=== PATIENT | male | born 1950 | race Caucasian/White ===

== ENCOUNTER 2017-04-21 14:35 | Emergency (ER) | payer OTHER, MEDICARE, BC | END 2017-04-21 14:53 | disposition left against medical advice (07) | LOC: DL.ED 14:35 | DX: Z53.21 Procedure and treatment not carried out due to patient leaving prior to being seen by health care provider (principal) ==

== ENCOUNTER 2017-04-26 08:05 | Emergency (ER) | payer OTHER, MEDICARE, BC ==
[2017-04-26 07:51] VITALS: BP 153/114
--- NOTE | 2017-04-26 08:39 | CR ---
Clinical history: 66-year-old male severe" right rib" pain associated with fall on 21 April 2017. Interpretation: Abnormal. *AP and oblique right rib detail films confirm the presence of acute (historically subacute) fracture s lateral aspect of the right fifth, sixth and seventh ribs. Blunting of the ipsilateral costophrenic sulcus associated mild underlying pleural thickening (hemato ma) lateral right chest wall. No pneumothorax. 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 Normal cardiac silhouette and mediastinum (dense calcifications arch of the aorta). No signs of heart failure. No lung mass, hilar lymphadenopathy or focal lobar pneumonia. CONCLUSION: Several right rib fractures.
--- NOTE | 2017-04-26 09:18 | EDM.PDOC ---
ED HPI GENERAL MEDICAL PROBLEM - General Chief Complaint: Back Pain or Injury Stated Complaint: IN BY [facility] Time Seen by Provider: 04/26/17 08:05 Source of Information: Reports: Patient, EMS, EMS Notes Reviewed, RN, RN Notes Reviewed History Limitations: Reports: No Limitations - History of Present Illness INITIAL COMMENTS - FREE TEXT/NARRATIVE: Pt presents to the ER with c/o right sided pain after a fall on 04/19. [facility] He states he was xrayed at that time and no fracture was noted. . Pt states he was given Tramadol and Lidocaine patches for pain. He states tramadol accelerated the pain, and Lido patch worked somewhat. Today pain is 12/10 and he states he has not slept in "days". He states he also has arthritic pain but no other health problems. Patient states he drinks 12 beers daily, smokes cigarettes daily, and marijuana daily. Onset: Gradual Onset Date: 04/19/17 Duration: Constant Location: Reports: Chest, Abdomen Quality: Reports: Sharp, Stabbing, Throbbing Severity: Severe Improves with: Reports: None Worsens with: Reports: None Associated Symptoms: Reports: No Other Symptoms Right Thoracic Pain Score (Numeric/FACES): 10 - Related Data Allergies Allergy/AdvReac Type Severity Reaction Status Date / Time No Known Allergies Allergy Verified 04/16/15 13:09 Home Meds: Home Meds Lidocaine 1 patch TD 04/26/17 [History] traMADol [Ultram] 50 mg PO 04/26/17 [History] Past Medical History - Past Health History Medical/Surgical History: Denies Medical/Surgical History HEENT History: Reports: Impaired Vision, Other (See Below) Other HEENT History: Artificial tear duct right. Cardiovascular History: Reports: None Respiratory History: Reports: None Gastrointestinal History: Reports: None Genitourinary History: Reports: None Musculoskeletal History: Reports: Other (See Below) Other Musculoskeletal History: Torn right rotator cuff Psychiatric History: Reports: Depression - Past Surgical History HEENT Surgical History: Reports: Eye Surgery Social & Family History - Family History Family Medical History: Noncontributory - Tobacco Use Smoking Status *Q: Current Every Day Smoker Years of Tobacco use: 50 Packs/Tins Daily: 1 - Caffeine Use Caffeine Use: Reports: None - Alcohol Use Days Per Week of Alcohol Use: 7 Number of Drinks Per Day: 2 Total Drinks Per Week: 14 - Recreational Drug Use Recreational Drug Use: Yes Recreational Drug Type: Reports: Marijuana/Hashish ED ROS GENERAL - Review of Systems Review Of Systems: ROS reveals no pertinent complaints other than HPI. ED EXAM, GENERAL - Physical Exam Exam: See Below Exam Limited By: No Limitations General Appearance: Alert, WD/WN, Moderate Distress Eye Exam: Bilateral Eye: EOMI, Normal Inspection, PERRL Ears: Normal External Exam, Hearing Grossly Normal Nose: Normal Inspection Throat/Mouth: Normal Inspection, Normal Lips, Normal Voice, No Airway Compromise Head: Atraumatic, Normocephalic Neck: Normal Inspection, Limited Range of Motion, Tender Lateral, Tender Midline Respiratory/Chest: No Respiratory Distress, Crackles (throughout) Cardiovascular: Normal Peripheral Pulses, Regular Rate, Rhythm, No Edema, No Gallop, No JVD, No Murmur, No Rub Peripheral Pulses: 2+: Radial (L), Radial (R) GI/Abdominal: Normal Bowel Sounds, Tender (Male) Exam: Deferred Rectal (Males) Exam: Deferred Back Exam: Normal Inspection, Decreased Range of Motion, Vertebral Tenderness Extremities: Normal Inspection, Non-Tender, No Pedal Edema, Normal Capillary Refill, Limited Range of Motion Neurological: Alert, Oriented, Normal Gait Psychiatric: Anxious Skin Exam: Warm, Dry, Intact, Normal Color, No Rash Lymphatic: No Adenopathy Course - Vital Signs Last Recorded V/S: Last Vital Signs Temp 97 F 04/26/17 07:50 Pulse 102 H 04/26/17 07:50 Resp BP 153/114 H 04/26/17 07:50 Pulse Ox - Re-Assessments/Exams Free Text/Narrative Re-Assessment/Exam: 04/26/17 09:30 Pt declines the need for the incentive spirometer as he states he gets his pneumonia shot. Departure - Departure Time of Disposition: 09:15 Disposition: Home, Self-Care 01 Condition: Fair Clinical Impression: Ribs, multiple fractures Qualifiers: Encounter type: initial encounter Fracture type: closed Laterality: right Qualified Code(s): S22.41XA - Multiple fractures of ribs, right side, initial encounter for closed fracture - Discharge Information Instructions: Pain Medicine Instructions, [id number], Rib Fracture, Easy-to- Read Forms: ED Department Discharge Additional Instructions: RX: Lorazepam, Lidocaine Ointment 5% Drink plenty of water Follow up with your primary care facility Use incentive spirometry as directed to prevent pneumonia Do not drive or drink alcohol while taking Lorazepam.
== END 2017-04-26 09:15 | disposition home or self-care (01) ==
LOC: DL.ED 08:05
DX: S22.41XA Multiple fractures of ribs, right side, initial encounter for closed fracture (principal); F17.210 Nicotine dependence, cigarettes, uncomplicated; W19.XXXA Unspecified fall, initial encounter
CPT/HCPCS: 71100-RT; 99283

== ENCOUNTER 2021-04-17 09:38 | Emergency (ER) | payer OTHER ==
[2021-04-17 10:09] VITALS: BP 162/86; PULSE 100
[2021-04-17] MEDS: cefTRIAXone 1 GM, Lidocaine 1% 2.1 ML IM ONE ×2 (12:01)
[2021-04-17] MEDS: Lidocaine 2% Jelly 10 ML Urojet ONE (12:02)
== END 2021-04-17 12:38 | disposition home or self-care (01) ==
LOC: DL.ED 09:38
DX: N39.0 Urinary tract infection, site not specified (principal); R97.20 Elevated prostate specific antigen [PSA]; Z79.899 Other long term (current) drug therapy; Z87.891 Personal history of nicotine dependence
CPT/HCPCS: 36415; 81001; 87086; 87088; 87186; 96372; 99283; 99284; G0103; J0696

== ENCOUNTER 2022-07-21 07:58 | Emergency (ER) | payer OTHER ==
[2022-07-21] MEDS ORDERED: Lidocaine 2% Jelly 10 ML Urojet MUCMEM ONE (08:05)
[2022-07-21 08:35] LABS: APPEARANCE,URINE CLEAR (CLEAR); BILIRUBIN,URINE NEGATIVE (NEGATIVE); COLOR,URINE YELLOW (YELLOW); GLUCOSE,URINE NEGATIVE (NEGATIVE); KETONES,URINE NEGATIVE (NEGATIVE); LEUKOCYTE ESTERASE,URINE NEGATIVE (NEGATIVE); NITRITE,URINE NEGATIVE (NEGATIVE); OCCULT BLOOD,URINE NEGATIVE (NEGATIVE); PH,URINE 5.5 (5.0-9.0); PROTEIN,URINE NEGATIVE (NEGATIVE); UROBILINOGEN,URINE 0.2 mg/dL (0.2-1.0)
[2022-07-21] MEDS ORDERED: Tamsulosin 0.4 MG Cap.ER PO ONE (08:46)
[2022-07-21 09:10] VITALS: BP 137/88; PULSE 101
== END 2022-07-21 09:03 | disposition home or self-care (01) ==
LOC: DL.ED 07:58
DX: R33.9 Retention of urine, unspecified (principal)
CPT/HCPCS: 51702; 81003; 99283; A9270-GY

== ENCOUNTER 2022-11-02 12:00 | Emergency (ER) | payer OTHER ==
[2022-11-02 12:19] VITALS: BP 152/80; PULSE 116
[2022-11-02] MEDS ORDERED: Sodium Chloride 0.9% 10 ML Syringe FLUSH PRN (12:30)
[2022-11-02 12:44] LABS: RED BLOOD CELL COUNT 4.54 10^6/uL (4.6-6.2); WHITE BLOOD CELL COUNT,WBC 7.4 10^3/uL (5.0-10.0)
[2022-11-02] MEDS ORDERED: Ketorolac 30 MG/ML SDV IVPUSH ONE (12:44)
[2022-11-02 12:45] LABS: BASOPHILS PERCENT AUTO 0.3 % (0.0-1.0); EOSINOPHILS PERCENT AUTO 0.4 % (1.0-3.0); HEMATOCRIT 41.8 % (40.0-54.0); HEMOGLOBIN 14.8 g/dL (14.0-18.0); LYMPHOCYTES PERCENT AUTO 11.4 % (20.5-50.1); MEAN CORPUSCULAR HEMOGLOBIN 32.6 pg (27.0-34.0); MEAN CORPUSCULAR HGB CONC 35.4 g/dL (33.0-35.0); MEAN CORPUSCULAR VOLUME 92.1 fL (80-100); MONOCYTES PERCENT AUTO 10.3 % (2-8); NEUTROPHILS PERCENT AUTO 77.6 % (42.2-75.2); PLATELET COUNT,PLT 223 10^3/uL (150-450)
[2022-11-02 13:04] LABS: A/G RATIO 0.8; ALBUMIN 3.6 g/dL (3.4-5.0); ANION GAP 14.4 mEq/L (7-13); BILIRUBIN TOTAL 1.2 mg/dL (0.2-1.0); BUN/CREATININE RATIO 11.4 (No establ ref range); CALCIUM 9.3 mg/dL (8.5-10.1); CREATININE 0.7 mg/dL (0.70-1.30); EST CRCL DRUG DOSING (CG) 90.93 mL/min; POTASSIUM,K 4.4 mmol/L (3.5-5.1); PROTEIN TOTAL,TP 7.9 g/dL (6.4-8.2)
[2022-11-02] MEDS ORDERED: Dexamethasone 4 MG/ML SDV IVPUSH ONE (13:43)
== END 2022-11-02 13:59 | disposition home or self-care (01) ==
LOC: DL.ED 12:00
DX: R07.81 Pleurodynia (principal); E78.00 Pure hypercholesterolemia, unspecified; Z87.891 Personal history of nicotine dependence; Z79.899 Other long term (current) drug therapy
CPT/HCPCS: 36415; 71101-RT; 80053; 85025; 96374; 96375; 99283-25; 99284; J1100; J1885; J3490

== ENCOUNTER 2023-06-07 05:56 | Emergency (ER) | payer OTHER ==
[2023-06-07] MEDS: Lidocaine 2% Jelly 10 ML Urojet ONE (06:00)
[2023-06-07] MEDS: Lidocaine 2% Jelly 10 ML Urojet MUCMEM ONE (06:28)
[2023-06-07 06:30] LABS: APPEARANCE,URINE CLEAR (CLEAR); BILIRUBIN,URINE NEGATIVE (NEGATIVE); COLOR,URINE YELLOW (YELLOW); GLUCOSE,URINE NEGATIVE (NEGATIVE); KETONES,URINE NEGATIVE (NEGATIVE); LEUKOCYTE ESTERASE,URINE NEGATIVE (NEGATIVE); NITRITE,URINE NEGATIVE (NEGATIVE); OCCULT BLOOD,URINE NEGATIVE (NEGATIVE); PROTEIN,URINE NEGATIVE (NEGATIVE); UROBILINOGEN,URINE 0.2 mg/dL (0.2-1.0)
[2023-06-07 06:31] LABS: HEMATOCRIT 41.9 % (40.0-54.0); HEMOGLOBIN 14.2 g/dL (14.0-18.0); MEAN CORPUSCULAR HEMOGLOBIN 30.8 pg (27.0-34.0); MEAN CORPUSCULAR HGB CONC 33.9 g/dL (33.0-35.0); MEAN CORPUSCULAR VOLUME 90.9 fL (80-100); PLATELET COUNT,PLT 376 10^3/uL (150-450); RED BLOOD CELL COUNT 4.61 10^6/uL (4.6-6.2); WHITE BLOOD CELL COUNT,WBC 12.2 10^3/uL (5.0-10.0)
[2023-06-07 06:43] LABS: LYMPHOCYTES PERCENT AUTO 12.2 % (20.5-50.1); NEUTROPHILS PERCENT AUTO 76.5 % (42.2-75.2)
[2023-06-07 06:44] LABS: BASOPHILS PERCENT AUTO 0.2 % (0.0-1.0); EOSINOPHILS PERCENT AUTO 0.4 % (1.0-3.0); MONOCYTES PERCENT AUTO 10.7 % (2-8)
[2023-06-07 06:52] LABS: ALANINE AMINOTRANSFERASE,ALT 41 U/L (16-63); ALKALINE PHOSPHATASE 88 U/L (46-116); ANION GAP 9.3 mEq/L (7-13); ASPARTATE AMNIOTRANSFERASE,AST 23 U/L (15-37); BILIRUBIN TOTAL 0.3 mg/dL (0.2-1.0); BLOOD UREA NITROGEN,BUN 13 mg/dL (7-18); BUN/CREATININE RATIO 16.9 (No establ ref range); CALCIUM 9.4 mg/dL (8.5-10.1); CARBON DIOXIDE,CO2 34 mmol/L (21-32); CHLORIDE,CL 97 mmol/L (98-107); CREATININE 0.77 mg/dL (0.70-1.30); GLUCOSE RANDOM 105 mg/dL (70-99); POTASSIUM,K 4.3 mmol/L (3.5-5.1); PROTEIN TOTAL,TP 7.3 g/dL (6.4-8.2); SODIUM,NA 136 mmol/L (136-145)
[2023-06-07 06:53] LABS: ESTIMATED GFR 94 mL/min (>=60)
[2023-06-07 07:41] LABS: BAND PERCENT MAN 2 %; LYMPHOCYTES PERCENT MAN 14 % (20-50); MONOCYTES PERCENT MAN 11 % (2-8); SEG NEUTROPHILS PERCENT MAN 73 % (42-75)
[2023-06-07 08:08] VITALS: BP 131/73; PULSE 98
== END 2023-06-07 08:46 | disposition home or self-care (01) ==
LOC: DL.ED 05:56
DX: R33.9 Retention of urine, unspecified (principal); Z96.0 Presence of urogenital implants; E78.00 Pure hypercholesterolemia, unspecified; J44.9 Chronic obstructive pulmonary disease, unspecified; Z79.51 Long term (current) use of inhaled steroids; Z79.899 Other long term (current) drug therapy
CPT/HCPCS: 36415; 51702; 80053; 81003; 85025; 99283; 99284; A9270

== ENCOUNTER 2023-06-21 17:10 | Inpatient (IN) | payer OTHER ==
[2023-06-21 18:35] LABS: APPEARANCE,URINE CLEAR (CLEAR); BILIRUBIN,URINE NEGATIVE (NEGATIVE); COLOR,URINE YELLOW (YELLOW); GLUCOSE,URINE NEGATIVE (NEGATIVE); KETONES,URINE 40 (NEGATIVE); LEUKOCYTE ESTERASE,URINE NEGATIVE (NEGATIVE); NITRITE,URINE NEGATIVE (NEGATIVE); OCCULT BLOOD,URINE TRACE-INTACT (NEGATIVE); PH,URINE 8.5 (5.0-9.0); PROTEIN,URINE NEGATIVE (NEGATIVE)
[2023-06-21 18:43] LABS: BASOPHILS PERCENT AUTO 0.2 % (0.0-1.0); HEMATOCRIT 40.8 % (40.0-54.0); HEMOGLOBIN 14.1 g/dL (14.0-18.0); LYMPHOCYTES PERCENT AUTO 2.8 % (20.5-50.1); MEAN CORPUSCULAR HEMOGLOBIN 30.6 pg (27.0-34.0); MEAN CORPUSCULAR HGB CONC 34.6 g/dL (33.0-35.0); MEAN CORPUSCULAR VOLUME 88.5 fL (80-100); MONOCYTES PERCENT AUTO 5.5 % (2-8); NEUTROPHILS PERCENT AUTO 91.5 % (42.2-75.2); PLATELET COUNT,PLT 266 10^3/uL (150-450); RED BLOOD CELL COUNT 4.61 10^6/uL (4.6-6.2); WHITE BLOOD CELL COUNT,WBC 18.9 10^3/uL (5.0-10.0)
[2023-06-21 18:56] LABS: BACTERIA,URINE FEW /HPF (0-FEW/HPF); EPITHELIAL CELLS,URINE FEW /HPF (NOT SEEN); MUCUS,URINE FEW /LPF (NOT SEEN); WBC,URINE 0-5 /HPF (0-5/HPF)
[2023-06-21 19:02] LABS: ALANINE AMINOTRANSFERASE,ALT 23 U/L (16-63); ALKALINE PHOSPHATASE 101 U/L (46-116); ANION GAP 14.3 mEq/L (7-13); ASPARTATE AMNIOTRANSFERASE,AST 15 U/L (15-37); BILIRUBIN TOTAL 0.6 mg/dL (0.2-1.0); BLOOD UREA NITROGEN,BUN 7 mg/dL (7-18); BUN/CREATININE RATIO 11.1 (No establ ref range); CALCIUM 8.5 mg/dL (8.5-10.1); CARBON DIOXIDE,CO2 28 mmol/L (21-32); CHLORIDE,CL 92 mmol/L (98-107); CREATININE 0.63 mg/dL (0.70-1.30); GLUCOSE RANDOM 118 mg/dL (70-99); POTASSIUM,K 4.3 mmol/L (3.5-5.1); PROTEIN TOTAL,TP 7.3 g/dL (6.4-8.2); SODIUM,NA 130 mmol/L (136-145)
[2023-06-21 19:04] LABS: AMPHETAMINES,URINE NEGATIVE (NEGATIVE); BARBITURATES,URINE NEGATIVE (NEGATIVE); BENZODIAZEPINE,URINE NEGATIVE (NEGATIVE); MDMA (ECSTASY), URINE NEGATIVE (NEGATIVE); METHADONE,URINE NEGATIVE (NEGATIVE); METHAMPHETAMINES,URINE NEGATIVE (NEGATIVE); OPIATES,URINE NEGATIVE (NEGATIVE); OXYCODONE,URINE NEGATIVE (NEGATIVE); PHENCYCLIDINE,URINE NEGATIVE (NEGATIVE); TCA,URINE NEGATIVE (NEGATIVE)
[2023-06-21 19:05] LABS: ESTIMATED GFR 100 mL/min (>=60)
[2023-06-21] MEDS: Sodium Chloride 0.9% 10 ML Syringe FLUSH PRN (19:43)
[2023-06-21] MEDS: Sodium Chloride 0.9% 1,000 ML IV ONE (19:47)
[2023-06-21 19:51] LABS: CORONAVIRUS COVID-19 NAA NEGATIVE (NEGATIVE); INFLUENZA A NAA NEGATIVE (NEGATIVE); INFLUENZA B NAA NEGATIVE (NEGATIVE); RESPIRATORY SYNCYTIAL VIR NAA NEGATIVE (NEGATIVE)
[2023-06-21 20:12] LABS: C-REACTIVE PROTEIN 4.17 ng/dL (<=0.50)
[2023-06-21 20:21] LABS: ETHANOL BLOOD MEDICAL < 3 mg/dL (0)
[2023-06-21] MEDS: Piperacillin/Tazobactam 4.5 GM in Sodium Chloride 0.9% 100 ML IV ONE (20:25)
[2023-06-21] MEDS ORDERED: Acetaminophen 325 MG Tab PO PRN (20:55)
[2023-06-21] MEDS ORDERED: Docusate Sodium 100 MG Cap PO PRN (20:55)
[2023-06-21] MEDS ORDERED: Ondansetron 4 MG Tab.DIS PO PRN (20:55)
[2023-06-21] MEDS ORDERED: Albuterol/Ipratropium 3.0-0.5 MG/3 ML Neb Soln NEB PRN (20:55)
[2023-06-21] MEDS: Acetaminophen/HYDROcodone 325-5 MG Tab PO PRN (21:50)
[2023-06-21] MEDS: LORazepam 1 MG Tab PO PRN (21:50)
[2023-06-21] MEDS: methylPREDNISolone Sodium Succinate 40 MG/1 ML SDV IVPUSH SCH (21:50)
[2023-06-21] MEDS: Sodium Chloride 0.9% 1,000 ML IV SCH (21:50)
[2023-06-22] MEDS: Piperacillin/Tazobactam 4.5 GM in Sodium Chloride 0.9% 100 ML IV SCH (00:10)
[2023-06-22 06:27] LABS: BASOPHILS PERCENT AUTO 0.2 % (0.0-1.0); HEMATOCRIT 39.3 % (40.0-54.0); HEMOGLOBIN 13.3 g/dL (14.0-18.0); LYMPHOCYTES PERCENT AUTO 3.2 % (20.5-50.1); MEAN CORPUSCULAR HEMOGLOBIN 30.4 pg (27.0-34.0); MEAN CORPUSCULAR HGB CONC 33.8 g/dL (33.0-35.0); MEAN CORPUSCULAR VOLUME 89.9 fL (80-100); MONOCYTES PERCENT AUTO 1.1 % (2-8); NEUTROPHILS PERCENT AUTO 95.5 % (42.2-75.2); PLATELET COUNT,PLT 260 10^3/uL (150-450); RED BLOOD CELL COUNT 4.37 10^6/uL (4.6-6.2); WHITE BLOOD CELL COUNT,WBC 18.4 10^3/uL (5.0-10.0)
[2023-06-22 06:44] LABS: ANION GAP 13.3 mEq/L (7-13); CALCIUM 8.2 mg/dL (8.5-10.1); CREATININE 0.89 mg/dL (0.70-1.30); EST CRCL DRUG DOSING (CG) 70.45 mL/min; POTASSIUM,K 4.3 mmol/L (3.5-5.1)
[2023-06-22] MEDS: Enoxaparin 40 MG/0.4 ML Syringe SUBCUT SCH (08:04)
[2023-06-22] MEDS: predniSONE 20 MG Tab PO SCH (09:47)
[2023-06-23 08:48] LABS: BASOPHILS PERCENT AUTO 0.1 % (0.0-1.0); EOSINOPHILS PERCENT AUTO 0.1 % (1.0-3.0); HEMATOCRIT 43.2 % (40.0-54.0); HEMOGLOBIN 14.6 g/dL (14.0-18.0); MEAN CORPUSCULAR HEMOGLOBIN 30.5 pg (27.0-34.0); MEAN CORPUSCULAR HGB CONC 33.8 g/dL (33.0-35.0); MEAN CORPUSCULAR VOLUME 90.4 fL (80-100); MONOCYTES PERCENT AUTO 4.1 % (2-8); NEUTROPHILS PERCENT AUTO 83.7 % (42.2-75.2); PLATELET COUNT,PLT 280 10^3/uL (150-450); RED BLOOD CELL COUNT 4.78 10^6/uL (4.6-6.2); WHITE BLOOD CELL COUNT,WBC 16.5 10^3/uL (5.0-10.0)
[2023-06-23 09:02] LABS: ANION GAP 11.6 mEq/L (7-13); CALCIUM 8.7 mg/dL (8.5-10.1); CREATININE 0.75 mg/dL (0.70-1.30); EST CRCL DRUG DOSING (CG) 83.6 mL/min; POTASSIUM,K 3.6 mmol/L (3.5-5.1)
[2023-06-23 11:12] VITALS: BP 149/73; PULSE 82
== END 2023-06-23 12:50 | disposition home or self-care (01) | DRG 194 ==
LOC: DL.ED 17:10 → DL.MS 20:21
PROVIDERS: ADMIT Internal Medicine; ATTEND Internal Medicine
DX: J18.9 Pneumonia, unspecified organism (principal); E87.1 Hypo-osmolality and hyponatremia; J44.0 Chronic obstructive pulmonary disease with (acute) lower respiratory infection; J44.1 Chronic obstructive pulmonary disease with (acute) exacerbation; R65.10 Systemic inflammatory response syndrome (SIRS) of non-infectious origin without acute organ dysfunction; Z66 Do not resuscitate; E78.00 Pure hypercholesterolemia, unspecified; F41.9 Anxiety disorder, unspecified; E86.0 Dehydration; N40.1 Benign prostatic hyperplasia with lower urinary tract symptoms; E87.8 Other disorders of electrolyte and fluid balance, not elsewhere classified; D72.828 Other elevated white blood cell count; T38.0X5A Adverse effect of glucocorticoids and synthetic analogues, initial encounter; R33.8 Other retention of urine; Z95.2 Presence of prosthetic heart valve; Z87.891 Personal history of nicotine dependence; Z79.899 Other long term (current) drug therapy
CPT/HCPCS: 0241U; 36415; 51798; 71045; 80048; 80053; 80305; 80307; 81001; 83605; 83735; 85025; 86140; 87040; 93005; 93010; 97161; 97165; 99232; 99239; 99284; A9270-GY; J1650; J2543; J2920; J3490; J7030; J7512

== ENCOUNTER 2025-01-02 07:09 | Inpatient (IN) | payer OTHER ==
[2025-01-02 07:37] LABS: BASOPHILS PERCENT AUTO 0.5 % (0.0-1.0); EOSINOPHILS PERCENT AUTO 0.0 % (1.0-3.0); LYMPHOCYTES PERCENT AUTO 3.0 % (20.5-50.1); MONOCYTES PERCENT AUTO 8.0 % (2-8); NEUTROPHILS PERCENT AUTO 88.5 % (42.2-75.2); PLATELET COUNT,PLT 202 10^3/uL (150-450); RED BLOOD CELL COUNT 5.12 10^6/uL (4.6-6.2); WHITE BLOOD CELL COUNT,WBC 12.8 10^3/uL (5.0-10.0)
[2025-01-02 07:53] LABS: A/G RATIO 0.9; ALANINE AMINOTRANSFERASE,ALT 12.0 U/L (16-63); ASPARTATE AMNIOTRANSFERASE,AST 19.0 U/L (15-37); BILIRUBIN TOTAL 1.3 mg/dL (0.2-1.0); BLOOD UREA NITROGEN,BUN 7.0 mg/dL (7-18); CARBON DIOXIDE,CO2 30.0 mmol/L (21-32); CHLORIDE,CL 94.0 mmol/L (98-107); CREATININE 0.64 mg/dL (0.70-1.30); EST CRCL DRUG DOSING (CG) 93.24 mL/min; GLUCOSE RANDOM 130.0 mg/dL (70-99); POTASSIUM,K 4.4 mmol/L (3.5-5.1); PROTEIN TOTAL,TP 7.7 g/dL (6.4-8.2); SODIUM,NA 132.0 mmol/L (136-145)
[2025-01-02 07:54] LABS: ESTIMATED GFR 98.0 mL/min (>=60); LACTIC ACID 1.3 mmol/L (0.4-2.0)
[2025-01-02 08:07] LABS: BASE EXCESS ARTERIAL 3 mmol/L ((-2)-(+3)); BICARBONATE,ARTERIAL 25.0 mmol/L (22-26); O2 DELIVERY DEVICE BIPAP; O2 SATURATION ARTERIAL 99 % (95-100); PCO2 ARTERIAL 31 mmHg (35-45); PH,ARTERIAL 7.52 (7.35-7.45); PO2 ARTERIAL 108 mmHg (70-100)
[2025-01-02 08:08] LABS: O2 FLOW RATE 10
[2025-01-02] MEDS: LORazepam 2 MG/ML SDV IVPUSH PRN (08:12)
[2025-01-02] MEDS: Iopamidol 612 MG/ML 100 ML Bottle IVPUSH ONE (08:16)
[2025-01-02] MEDS: Albuterol 0.083% 2.5 MG/3 ML Neb Soln NEB ONE (08:30)
[2025-01-02] MEDS: Albuterol 0.083% 2.5 MG/3 ML Neb Soln ONE (08:55)
[2025-01-02 09:36] LABS: APPEARANCE,URINE CLEAR (CLEAR); GLUCOSE,URINE NEGATIVE (NEGATIVE); OCCULT BLOOD,URINE TRACE-INTACT (NEGATIVE)
[2025-01-02 09:41] LABS: AMPHETAMINES,URINE NEGATIVE (NEGATIVE); BARBITURATES,URINE NEGATIVE (NEGATIVE); MDMA (ECSTASY), URINE NEGATIVE (NEGATIVE); METHAMPHETAMINES,URINE NEGATIVE (NEGATIVE); OPIATES,URINE NEGATIVE (NEGATIVE); OXYCODONE,URINE NEGATIVE (NEGATIVE); PHENCYCLIDINE,URINE NEGATIVE (NEGATIVE); TCA,URINE NEGATIVE (NEGATIVE)
[2025-01-02 09:48] LABS: EPITHELIAL CELLS,URINE RARE /HPF (NOT SEEN)
[2025-01-02] MEDS ORDERED: Ondansetron 4 MG/2 ML SDV IVPUSH PRN (12:13)
[2025-01-02] MEDS: Albuterol 0.083% 2.5 MG/3 ML Neb Soln NEB SCH (12:50)
[2025-01-02] MEDS: MVI, Adult with Vitamin K 10 ML, Folic Acid 1 MG, Thiamine 100 MG in Lactated Ringers 1... IV ONE (13:00)
[2025-01-02] MEDS: Heparin Sodium 5,000 Units/ML Vial SUBCUT SCH (13:00)
[2025-01-02] MEDS: methylPREDNISolone Sodium Succinate 40 MG/1 ML SDV IVPUSH SCH (13:00)
[2025-01-02] MEDS: Thiamine 200 MG/2 ML MDV IVPUSH SCH (13:18)
[2025-01-02 13:20] LABS: FOLIC ACID 16.2 ng/mL (8.6-58.9)
[2025-01-02] MEDS: Lactated Ringers 1,000 ML IV SCH (14:38)
[2025-01-02] MEDS: Magnesium Sulfate 2 GM/50 mL 2 GM in Premix Bag 1 BAG IV ONE (14:46)
[2025-01-02 15:30] LABS: APPEARANCE,URINE CLEAR (CLEAR); GLUCOSE,URINE NEGATIVE (NEGATIVE); OCCULT BLOOD,URINE NEGATIVE (NEGATIVE)
[2025-01-02] MEDS: Formoterol/Mometasone 200-5 MCG 8.8 GM Inhaler INH SCH (18:32)
[2025-01-02 19:53] LABS: CORONAVIRUS COVID-19 NAA NEGATIVE (NEGATIVE); INFLUENZA A NAA NEGATIVE (NEGATIVE); INFLUENZA B NAA NEGATIVE (NEGATIVE); RESPIRATORY SYNCYTIAL VIR NAA NEGATIVE (NEGATIVE)
[2025-01-03] MEDS: Sodium Chloride 0.9% 10 ML Syringe FLUSH PRN (05:07)
[2025-01-03 06:10] LABS: BASOPHILS PERCENT AUTO 0.4 % (0.0-1.0); EOSINOPHILS PERCENT AUTO 0.0 % (1.0-3.0); LYMPHOCYTES PERCENT AUTO 2.6 % (20.5-50.1); MONOCYTES PERCENT AUTO 4.2 % (2-8); NEUTROPHILS PERCENT AUTO 92.8 % (42.2-75.2); PLATELET COUNT,PLT 163 10^3/uL (150-450); RED BLOOD CELL COUNT 4.42 10^6/uL (4.6-6.2); WHITE BLOOD CELL COUNT,WBC 14.4 10^3/uL (5.0-10.0)
[2025-01-03] MEDS: Heparin Sodium 5,000 Units/ML Vial SUBCUT SCH (06:13)
[2025-01-03 06:43] LABS: ALANINE AMINOTRANSFERASE,ALT 9.0 U/L (16-63); ASPARTATE AMNIOTRANSFERASE,AST 11.0 U/L (15-37); BILIRUBIN DIRECT 0.4 mg/dL (0.0-0.2); BILIRUBIN INDIRECT 0.8; BILIRUBIN TOTAL 1.2 mg/dL (0.2-1.0); BLOOD UREA NITROGEN,BUN 8.0 mg/dL (7-18); CARBON DIOXIDE,CO2 31.0 mmol/L (21-32); CHLORIDE,CL 99.0 mmol/L (98-107); CREATININE 0.52 mg/dL (0.70-1.30); EST CRCL DRUG DOSING (CG) 116.92 mL/min; FOLIC ACID 12.6 ng/mL (8.6-58.9); GLUCOSE RANDOM 142.0 mg/dL (70-99); POTASSIUM,K 4.0 mmol/L (3.5-5.1); PROTEIN TOTAL,TP 6.3 g/dL (6.4-8.2); SODIUM,NA 135.0 mmol/L (136-145); VANCOMYCIN RANDOM 13.1 ug/mL (No Normal Range)
[2025-01-03 06:44] LABS: A/G RATIO 0.66; ESTIMATED GFR 104.0 mL/min (>=60)
[2025-01-03] MEDS: methylPREDNISolone Sodium Succinate 40 MG/1 ML SDV IVPUSH SCH (10:50)
[2025-01-04 06:20] LABS: BASOPHILS PERCENT AUTO 0.2 % (0.0-1.0); EOSINOPHILS PERCENT AUTO 0.0 % (1.0-3.0); LYMPHOCYTES PERCENT AUTO 3.4 % (20.5-50.1); MONOCYTES PERCENT AUTO 5.2 % (2-8); NEUTROPHILS PERCENT AUTO 91.2 % (42.2-75.2); PLATELET COUNT,PLT 174 10^3/uL (150-450); RED BLOOD CELL COUNT 4.21 10^6/uL (4.6-6.2); WHITE BLOOD CELL COUNT,WBC 12.2 10^3/uL (5.0-10.0)
[2025-01-04 06:53] LABS: BLOOD UREA NITROGEN,BUN 10.0 mg/dL (7-18); CARBON DIOXIDE,CO2 31.0 mmol/L (21-32); CHLORIDE,CL 100.0 mmol/L (98-107); CREATININE 0.42 mg/dL (0.70-1.30); EST CRCL DRUG DOSING (CG) 144.76 mL/min; FOLIC ACID 11.9 ng/mL (8.6-58.9); GLUCOSE RANDOM 121.0 mg/dL (70-99); POTASSIUM,K 3.9 mmol/L (3.5-5.1); SODIUM,NA 132.0 mmol/L (136-145); VANCOMYCIN RANDOM 15.7 ug/mL (No Normal Range)
[2025-01-04 06:54] LABS: ESTIMATED GFR 111.0 mL/min (>=60)
[2025-01-04 12:04] VITALS: BP 152/73; PULSE 95
[2025-01-04] MEDS: VANCOmycin 1.75 GM/350 ML 350 ML IV SCH (14:17)
[2025-01-05 14:47] LABS: IONIZED CA@PH7.4 1.21 mmol/L (1.09-1.30); IONIZED CALCIUM 1.15 mmol/L (1.09-1.30)
== END 2025-01-04 13:50 | disposition home or self-care (01) | DRG 871 ==
LOC: DL.ED 07:09 → DL.MS 10:58
PROVIDERS: ADMIT Internal Medicine; ATTEND Internal Medicine
DX: A41.9 Sepsis, unspecified organism (principal); J44.9 Chronic obstructive pulmonary disease, unspecified; J18.9 Pneumonia, unspecified organism; E78.00 Pure hypercholesterolemia, unspecified; J96.01 Acute respiratory failure with hypoxia; Z87.891 Personal history of nicotine dependence; J44.1 Chronic obstructive pulmonary disease with (acute) exacerbation; E87.1 Hypo-osmolality and hyponatremia; E87.3 Alkalosis; J44.0 Chronic obstructive pulmonary disease with (acute) lower respiratory infection; E86.0 Dehydration; E83.42 Hypomagnesemia; E83.51 Hypocalcemia; F10.20 Alcohol dependence, uncomplicated; E78.5 Hyperlipidemia, unspecified; F41.9 Anxiety disorder, unspecified; F32.A Depression, unspecified; R73.9 Hyperglycemia, unspecified; E86.1 Hypovolemia; N40.1 Benign prostatic hyperplasia with lower urinary tract symptoms; R33.8 Other retention of urine; M81.0 Age-related osteoporosis without current pathological fracture; G47.00 Insomnia, unspecified; Z79.899 Other long term (current) drug therapy; Z99.81 Dependence on supplemental oxygen; Z79.2 Long term (current) use of antibiotics; Z79.1 Long term (current) use of non-steroidal anti-inflammatories (NSAID); Z79.891 Long term (current) use of opiate analgesic; Z95.2 Presence of prosthetic heart valve
CPT/HCPCS: 36415; 36600; 71260; 74177; 80048; 80053; 80076; 80202; 80305-QW; 80307; 81001; 81003; 82330; 82607; 82746; 82803; 83036; 83605; 83735; 84100; 84484; 85025; 87040; 87070; 87205; 87637; 93005; 93010; 94010; 94618; 94640; 94664; 96365; 96375; 99223; 99233; 99239; 99284; 99285-25; A9270-GY; J0612; J1644; J1808; J2060; J2543; J2919; J3373; J3374; J3411; J3475; J3490; J7030; J7050; J7120; Q9967

== ENCOUNTER 2025-01-22 19:42 | Inpatient (IN) | payer OTHER ==
[~2025-01-22 19:42] MED LIST: Sodium Chloride 0.9% 10 ML Syringe FLUSH PRN
[2025-01-22 19:53] LABS: BASOPHILS PERCENT AUTO 0.6 % (0.0-1.0); EOSINOPHILS PERCENT AUTO 0.3 % (1.0-3.0); LYMPHOCYTES PERCENT AUTO 5.2 % (20.5-50.1); MONOCYTES PERCENT AUTO 6.7 % (2-8); NEUTROPHILS PERCENT AUTO 87.2 % (42.2-75.2); PLATELET COUNT,PLT 212 10^3/uL (150-450); RED BLOOD CELL COUNT 4.69 10^6/uL (4.6-6.2); WHITE BLOOD CELL COUNT,WBC 15.5 10^3/uL (5.0-10.0)
[2025-01-22 20:16] LABS: A/G RATIO 0.9; ALANINE AMINOTRANSFERASE,ALT 20 U/L (16-63); ASPARTATE AMNIOTRANSFERASE,AST 16 U/L (15-37); B-TYPE NATRIURETIC PEPTIDE,BNP 32 pg/ml (0-100); BILIRUBIN TOTAL 0.7 mg/dL (0.2-1.0); BLOOD UREA NITROGEN,BUN 7 mg/dL (7-18); CARBON DIOXIDE,CO2 31 mmol/L (21-32); CHLORIDE,CL 94 mmol/L (98-107); CREATININE 0.69 mg/dL (0.70-1.30); EST CRCL DRUG DOSING (CG) 82.19 mL/min; GLUCOSE RANDOM 95 mg/dL (70-99); POTASSIUM,K 4.0 mmol/L (3.5-5.1); PROTEIN TOTAL,TP 7.2 g/dL (6.4-8.2); SODIUM,NA 134 mmol/L (136-145)
[2025-01-22 20:18] LABS: INR 0.9 (0.9-1.2)
[2025-01-22] MEDS: Levofloxacin/Dextrose 5%-Water 750 MG in Premix Bag 1 BAG IV ONE (20:21)
[2025-01-22] MEDS: methylPREDNISolone Sodium Succinate 125 MG/2 ML SDV IVPUSH ONE (20:22)
[2025-01-22 20:24] LABS: ESTIMATED GFR 96 mL/min (>=60)
[2025-01-22] MEDS: Iopamidol 755 Mg/ML 100 ML Bottle IVPUSH ONE (20:34)
[2025-01-22 22:57] LABS: APPEARANCE,URINE CLEAR (CLEAR); GLUCOSE,URINE NEGATIVE (NEGATIVE); OCCULT BLOOD,URINE NEGATIVE (NEGATIVE)
[2025-01-22] MEDS: Heparin Sodium 5,000 Units/ML Vial SUBCUT SCH (23:24)
[2025-01-23 05:53] LABS: BASOPHILS PERCENT AUTO 0.4 % (0.0-1.0); EOSINOPHILS PERCENT AUTO 0.0 % (1.0-3.0); LYMPHOCYTES PERCENT AUTO 2.7 % (20.5-50.1); MONOCYTES PERCENT AUTO 0.9 % (2-8); NEUTROPHILS PERCENT AUTO 96.0 % (42.2-75.2); PLATELET COUNT,PLT 205 10^3/uL (150-450); RED BLOOD CELL COUNT 4.13 10^6/uL (4.6-6.2); WHITE BLOOD CELL COUNT,WBC 12.8 10^3/uL (5.0-10.0)
[2025-01-23 06:11] LABS: BLOOD UREA NITROGEN,BUN 6.0 mg/dL (7-18); CARBON DIOXIDE,CO2 28.0 mmol/L (21-32); CHLORIDE,CL 101.0 mmol/L (98-107); CREATININE 0.7 mg/dL (0.70-1.30); EST CRCL DRUG DOSING (CG) 81.02 mL/min; GLUCOSE RANDOM 170.0 mg/dL (70-99); PHOSPHORUS 2.6 mg/dL (2.6-4.7); POTASSIUM,K 3.9 mmol/L (3.5-5.1); SODIUM,NA 136.0 mmol/L (136-145)
[2025-01-23 06:12] LABS: ESTIMATED GFR 95.0 mL/min (>=60)
[2025-01-23] MEDS: Formoterol/Mometasone 200-5 MCG 8.8 GM Inhaler INH SCH (07:18)
[2025-01-23] MEDS: methylPREDNISolone Sodium Succinate 40 MG/1 ML SDV IVPUSH SCH (08:16)
[2025-01-23] MEDS: Albuterol 0.083% 2.5 MG/3 ML Neb Soln NEB PRN (17:56)
[2025-01-23] MEDS: Amoxicillin/Clavulanate K 875-125 MG Tab PO SCH (20:31)
[2025-01-23] MEDS ORDERED: Ampicillin/Sulbactam Na 3 GM in Sodium Chloride 0.9% 100 ML IV SCH (21:00)
[2025-01-24 06:14] LABS: BASOPHILS PERCENT AUTO 0.4 % (0.0-1.0); EOSINOPHILS PERCENT AUTO 0.0 % (1.0-3.0); LYMPHOCYTES PERCENT AUTO 3.7 % (20.5-50.1); MONOCYTES PERCENT AUTO 4.1 % (2-8); NEUTROPHILS PERCENT AUTO 91.8 % (42.2-75.2); PLATELET COUNT,PLT 210 10^3/uL (150-450); RED BLOOD CELL COUNT 4.02 10^6/uL (4.6-6.2); WHITE BLOOD CELL COUNT,WBC 15.1 10^3/uL (5.0-10.0)
[2025-01-24 16:41] VITALS: BP 154/84; PULSE 92
[2025-01-26 17:41] LABS: AMPHETAMINES Negative; BARBITURATES Negative; BENZODIAZEPINES Presumptivepos ng/mL; BUPRENORPHINE Negative; CANNABINOIDS Presumptivepos ng/mL; COCAINE METABOLITES Negative; METHADONE Negative; METHAMPHETAMINE Negative; OPIATES Negative; OXYCODONE Negative; PHENCYCLIDINE Negative
== END 2025-01-24 16:47 | disposition home or self-care (01) | DRG 871 ==
LOC: DL.ED 19:42 → DL.MS 21:44
PROVIDERS: ADMIT Internal Medicine; ATTEND Internal Medicine
DX: A41.9 Sepsis, unspecified organism (principal); J18.9 Pneumonia, unspecified organism; J69.0 Pneumonitis due to inhalation of food and vomit; D72.825 Bandemia; J96.21 Acute and chronic respiratory failure with hypoxia; R79.89 Other specified abnormal findings of blood chemistry; J44.0 Chronic obstructive pulmonary disease with (acute) lower respiratory infection; J44.1 Chronic obstructive pulmonary disease with (acute) exacerbation; N42.9 Disorder of prostate, unspecified; E78.00 Pure hypercholesterolemia, unspecified; E78.5 Hyperlipidemia, unspecified; E86.0 Dehydration; N40.0 Benign prostatic hyperplasia without lower urinary tract symptoms; F41.9 Anxiety disorder, unspecified; F32.A Depression, unspecified; M81.0 Age-related osteoporosis without current pathological fracture; Z99.81 Dependence on supplemental oxygen; Z79.899 Other long term (current) drug therapy; Z98.890 Other specified postprocedural states
CPT/HCPCS: 71046; 71275; 80053; 80307; 83605; 83735; 83880; 84484; 85025; 85379; 85610; 86140; 87040 ×2; 87428; 93005; 93010; 96365; 96375; 99285 ×2; A9270; J1956; J2919; J7030; Q9967; 36415; 80048; 81003; 84100; 87070; 87205; 94618; 94640; 94664; 97161-GP; 97165-GO; J1644; J7040; J7512